=== PATIENT | female | born 1965 | race Caucasian/White ===

== ENCOUNTER 2024-03-27 02:07 | Emergency (ER) | payer BC, SELFPAY ==
--- OUTSIDE RECORDS SUMMARY | 2024-03-27 02:09 | XMS_ITS | Continuity of Care Document ---
Author Name NwHIN User [email or web address]-a llowed Address Unknown Organization Unknown Address Unknown Encounters FILTER APPLIED:Only known Encounters with Admission Date within the last 5 years Encounter Location Admission Discharge Billing Code Roads Superintendent Attender Recurring Patient [id number] ESTEVAN NEELAM Recurring Patient [id number] ESTEVAN NEELAM Recurring Patient [id number] ESTEVAN NEELAM
--- OUTSIDE RECORDS SUMMARY | 2024-03-27 02:09 | XMS_ITS | Clinical Summary ---
Author Organization [facility] Address [place], [place] [address] Care Team Providers Care Yard Brakeman Name Role Phone Arian Dacosta MD Primary Care Provider Allergies Active Allergy Reactions Criticality Noted Date Comments Pioglitazone Other - Describe In Comment Field 06/08/2022 Low sugars 'first week'. Egg GI Upset 05/03/2016 Telmisartan Cough 09/29/2016 Simvastatin Cough 04/11/2016 Cannot tolerate Zocor, but tolerates generic simvastatin Medications blood-glucose meterIndications :Type 2 diabetes mellitus without complication, without long-term current use of insulin (HC) As directed. Dispense meter, test strips, lancets covered by pt ins. E11.65 NIDDM type II, uncontrolled - Test 3 times/day, Reason: High A1C 1 Each 3 Active FreeStyle Renzo 2 ReaderIndication s:Type 2 diabetes mellitus without complication, without long-term current use of insulin (HC) To be used to read blood sugars per licensing manager's directions. 1 Each 3 Active losartan (COZAAR) 50 mg tabletIndication s:Essential hypertension Take 1 Tablet (50 mg) by mouth once daily. 90 Tablet 3 4 Active metFORMIN (GLUCOPHAGE XR) 500 mg Extended-Release tabletIndication s:Type 2 diabetes mellitus without complication, without long-term current use of insulin (HC) Take 4 Tablets (2,000 mg) by mouth once daily with evening meal. 360 Tablet 2 4 Active rosuvastatin (CRESTOR) 10 mg tabletIndication s:Type 2 diabetes mellitus without complication, without long-term current use of insulin (HC) Take 1 Tablet (10 mg) by mouth at bedtime. 90 Tablet 3 4 Active glimepiride (AMARYL) 4 mg tabletIndication s:Type 2 diabetes mellitus without complication, without long-term current use of insulin (HC) Take 1 Tablet (4 mg) by mouth once daily with a meal. 90 Tablet 2 4 Active FreeStyle Renzo 2 SensorIndication s:Type 2 diabetes mellitus without complication, without long-term current use of insulin (HC) Change every 14 days. To be used to read blood sugars per licensing manager's directions. 6 Each 3 4 Active cyclobenzaprine (FLEXERIL) 10 mg tabletIndication s:Acute right-sided low back pain with right-sided sciatica 1 tab by mount up at bedtime as needed for muscle spasm. May make you drowsy/ less alert. 30 Tablet 1 4 Active Active Problems Problem Noted Date Diagnosed Date Overweight 06/08/2022 Mixed hyperlipidemia 06/17/2020 PTSD (post-traumatic stress disorder) 09/29/2016 Nephrolithiasis 04/11/2016 Overview (09/29/2016): 11 previous/one surgically removed Type 2 diabetes mellitus wit hout complication, without long-term current use of insulin 04/11/2016 Overview (07/30/2023): Dx: 2004April 2023: Hemoglobin A1c 11.9 while on metformin, Added Glimepiride. July 2023: Increased Glimepiride to 4mg Essential hypertension 04/11/2016 Ureteral calculus Resolved Problems Problem Noted Date Diagnosed Date Resolved Date Hydronephrosis with urinary obstruction due to ureteral calculus on the right 04/11/20162022 SALVATORE (acute kidney injury) 04/11/2016 Lactic acidosis 04/11/2016 06/08/2022 Acute pyelonephritis, probable 04/11/2016 06/08/2022 Encounters Date Type Department Care Team Description 01/05/2024 1:45 PM CDT - 01/05/2024 11:59 PM CDT Hospital Encounter [address] [address] Colten Garrett MD Noble, Isaac J, PT 01/05/2024 Travel from Last 3 Months Immunizations Name Administration Dates Next Due Influenza, IIV4 01/17/2018 Influenza, IIV4 (=>6mos) MDV 02/05/2020 Tdap 01/17/2018 Zoster (Shingrix-RZV, recombinant) 05/08/2018 Family History Medical History Relation Name Comments Coronary artery disease Father s/p stent Nephrolithiasis Father Arthritis Mother Migraines Mother Gestational diabetes Paternal Grandmother Leukemia Paternal Grandmother of Leukemia Cancer Paternal Uncle Bladder cance r Cancer-breast No Family History Cancer-ovarian No Family History Relation Name Status Comments Father Mother Paternal Grandmother Paternal Uncle Social History Tobacco Use Types Packs/Day Years Used Date Smoking Tobacco: Former Smokeless Tobacco: Never Tobacco Cessation:Counseling Given: No Comments:Two years in her late 20's Alcohol Use Standard Drinks/Week Comments Not Currently 0 (1 standard drink = 0.6 oz pur e alcohol) occasional [facility] Utilities Answer Date Recorded Do you have trouble paying f or utilities (for example, heat, electricity, water, phone)? Yes 07/28/2023 PHQ-2 Answer Date Recorded PHQ-2 TOTAL SCORE 0 04/28/2023 Social Connections Answer Date Recorded Do you often feel lonely or isolated from those around you? 0 07/28/2023 Financial Resource Strain Answer Date R ecorded Difficulty of Paying Living Expenses 3 07/28/2023 Difficulty of Paying Living Expenses Not on file 07/28/2023 Food Insecurity Answer Date Recorded Do you worry your food will run out before you are able to buy more? 1 07/28/2023 Transportation Needs Answer Date Record ed Does lack of transportation keep you from medica l appointments? 1 07/28/2023 Does lack of transportation keep you from work, meetings or getting things that you need? 1 07/28/2023 Housing Stability Answer Date Recorded What is your housing situation today? 1 07/28/2023 Comments No Sex and Gender Information Value Date Recorded Sex Assigned at Female 04/11/2023 2:42 PM CIRCUS TRAINER Legal Sex Female 10:32 PM CIRCUS TRAINER Gender Identity Female 04/11/2023 2:42 PM CIRCUS TRAINER Sexual Orientation Not on file Obstetrics History Para Term AB IAB SAB Ectopic Multiple Livin g Live Births 5 5 5 Date Outcome GA Total Labor Labor/2nd/3rd Weight Sex Type Anes PTL Kandice A1 A5 Name Clin SAB SAB SAB SAB SAB Last Filed Vital Signs Vital Sign Reading Time Taken Comments Blood Pressure 134/85 11/17/2023 3:32 PM CDT Pulse 99 11/17/2023 3:32 PM CDT Temperature 37.3 C (99.1 F) 03/14/2022 4:05 PM CIRCUS TRAINER Respiratory Rate 18 03/14/2022 4:05 PM CIRCUS TRAINER Oxygen Saturation 100% 11/17/2023 3:32 PM CDT Inhaled Oxygen Concentration - - Weight 102.3 kg (225 lb 8 oz) 11/17/2023 3:32 PM CDT Height 177.8 cm (5' 10) 11/17/2023 3:32 PM CDT Body Mass Index 32.36 11/17/2023 3:32 PM CDT Plan of Treatment Health Maintenance Due Date Last Done Comments Hepatitis B series for Diabe qi (1 of 3 - 19+ 3-dose series) 1985 Pneumococcal series for age 50+ (1 of 2 - PCV) 1985 Pap test for age 21-65 1987 Colonoscopy through age 75 2011 Zoster (shingles) series for age 50+ (2 of 2) 07/03/2018 05/08/2018 COVID-19 vaccine series ( season) 2023 10/23/2021, 03/05/2021, 07/15/2020, Additional history exists Influenza for age 50-64 11/19/2023 02/05/2020, 01/17 Depression screening for age 12+ 04/28/2024 04/28/2023, 05/27/2019, 02/26/2018, Additional history exists Mammogram for age 45-75 05/03/2024 05/03/2023 BMI (ht and wt on same day) for age 18+ 11/16/2024 11/17/2023, 05/27/2019, 09/01/2017, Additional history exists Tetanus booster 01/18/2028 01/17/2018 Lipids for age 45-75 04/25/2028 04/25/2023, 07/08/2021, 06/17/2020, Additional history exists Tdap Completed 01/17/2018 HIV for age 15-65 Completed 06/08/2022 Hepatitis C screening for ag e 18-79 Completed 06/08/2022 Goals Goal Patient Goal Type Associated Problems Recent Progress Patient-Stated? Author BLOOD PRESSURE - MAINTAINS BP less than 140/90 Blood Pressure No Oleksandr Covarrubias MD Medical Devices Implanted Type Area Secretary Office Clerk Device Identifier Shelf Expiration Date Model / Serial / Lot Stent Uret [id number] Contour - [id number] Implanted:Qty: 1 on 04/11/2016 by Sharri Moreno MD at [facility] Right: Ureter [facility] [id number] / / [id number] Procedures Procedure Name Priority Date/Time Associated Diagnosis Comments XR MAMMO BILAT SCREENING Routine 05/03/2023 4:30 PM CIRCUS TRAINER Visit for screening mammogram LIPID PANEL W REFLEX MEASURED LDL Routine 04/25/2023 4:02 PM CIRCUS TRAINER Mixed hyperlipidemia LC HIV-1/O/2, 4TH GENERATION Routine 06/08/2022 10:00 AM CDT Screening for HIV (human immunodeficiency virus) LC HCV ANTIBODY RFX TO QUANT PCR Routine 06/08/2022 10:00 AM CDT Need for hepatitis C screening test from Last 3 Months or Most Recently Relevant to Health Maintenance Results * XR MAMMO BILAT SCREENING (05/03/2023 4:30 PM CIRCUS TRAINER) Anatomical Region Laterality Modality BREASTS, Breast Left, Breast Right Bilateral Mammography Impressions 05/31/2023 1:34 PM CDT There is no radiographic evidence for malignancy. Recommend annual mammograms. MAMMOGRAM ASSESSMENT: ACR 1 Negative PATIENTS: You will also receive a letter with your examination results in an easy to read format. If you have questions about your results, please contact your referring provider. Narrative 05/31/2023 1:34 PM CDT For Patients: As a result of the Century Cures Act, medical imaging exams and procedure reports are released immediately into your electronic medical record. You may view this report before your referring provider. If you have questions, please contact your health care provider. XR MAMMO BILAT SCREENING [[id number]] CLINICAL HISTORY: This is an asymptomatic 58 y.o. patient. INDICATION FOR EXAM: Mammogram Screening. TECHNIQUE: CC & MLO views were obtained. This study was evaluated with the assistance of Computer-Aided Detection. COMPARISON FILM: Priors not available at the time of this report. FINDINGS: The breasts have scattered areas of fibroglandular density. There are no dominant masses, suspicious micro calcifications or areas of architectural distortion. us Colten Garrett MD MAMMO Final Res ult * LIPID PANEL W REFLEX MEASURED LDL (04/25/2023 4:02 PM CIRCUS TRAINER) CHOLESTEROL,TOTAL 139 100 - 199 mg/dL 04/26/2023 2:[address] [facility] Comment: Cholesterol, Total Reference Ranges Desirable <200 mg/dL Borderline 200-239 mg/dL High >=240 mg/dL TRIGLYCERIDES 119 <150 mg/dL 04/26/2023 2:36 PM CIRCUS TRAINER [facility] HDL CHOLESTEROL 59 >40 mg/dL 2:[address] [facility] NON-HDL CHOLESTEROL 80 <145 mg/dl 04/26/2023 2:[address] [facility] CHOL/HDL RATIO 2.36 <4.50 04/26/2023 2:[address] [facility] LDL CHOLESTEROL 56 <=130 mg/dL 04/26/2023 2:[address] [facility] VLDL CHOLESTEROL 24 <=30 mg/dL 04/26/2023 2:[address] [facility] PROVIDER ORDERED STATUS FASTING 04/26/2023 2:[address] [facility] Blood BLOOD SPECIMEN / Unknown Butterfly / Unknown 04/25/2023 4:02 PM CIRCUS TRAINER 04/25/2023 4:09 PM CIRCUS TRAINER us Colten Garrett MD CHEMISTRY Final Res ult [facility] [address] [place] [address], [place] * LC HCV ANTIBODY RFX TO QUANT PCR (06/08/2022 10:00 AM CDT) Pathologist [facility] HCV Ab Non Reactive Non Reactive 06/10/2022 3:09 PM CDT [facility] Blood BLOOD SPECIMEN / Unknown Butterfly / Unknown 06/08/2022 10:00 AM CDT 06/08/2022 10:04 AM CDT Narrative [facility] - 06/10/2022 3:09 PM CDT Performed at: [address] [place] [id number] Hospital Internship: Pasquale Barnett MD, Phone: [phone] us Arian Dacosta MD LABORATORY Final Result Performing Organization Address City/[facility]/ZIP Co de Phone Number [facility] [address] [place] [id number], [place] * LC HIV-1/O/2, 4TH GENERATION (06/08/2022 10:00 AM CDT) Pathologist [facility] HIV Scr 4th Gen Non Reactive Non Reactive 06/10/2022 2:09 PM CDT [facility] Comment: HIV Negative HIV-1/HIV-2 antibodies and HIV-1 p24 antigen were NOT detected. There is no laboratory evidence of HIV infection. Blood BLOOD SPECIMEN / Unknown Butterfly / Unknown 06/08/2022 10:00 AM CDT 06/08/2022 10:04 AM CDT Narrative [facility] - 06/10/2022 2:09 PM CDT Performed at: 01 - [facility] [address] [place], [place] [id number] Hospital Internship: Pasquale Barnett MD, Phone: [phone] Arian Dacosta MD LABORATORY Final Result [facility]) [address] [place] [address], from Last 3 Months or Most Recently Relevant to Health Maintenance Insurance [facility] Advance Directives * Full Code (Latest Code Status on File) Date Activated Date Inactivated Comments 05/03/2016 8:14 AM 05/03/2016 11:11 AM * Full Code Date Activated Date Inactivated Comments 05/03/2016 6:58 AM 05/03/2016 8:14 AM * Full Code Date Activated Date Inactivated Comments 04/11/2016 2:16 AM 04/12/2016 3:14 PM Question Answer Comments Code Status Discussion: Discussed * Full Code Date Activated Date Inactivated Comments 04/11/2016 1:37 AM 04/11/2016 2:16 AM Question Answer Comments Code Status Discussion: Not Discussed Care Teams Yard Brakeman Relationship Specialty Start Date End Date Arian Dacosta MD [address] [place] [address] PCP - General Family Practice 03/17/22
[2024-03-27 02:11] VITALS: BP 170/89; PULSE 125; RESP 16; TEMP 35.6; O2SAT 100; BMI 30.8
--- NOTE | 2024-03-27 02:53 | ED_ITS ---
HPI - General Adult General Chief complaint: Hypertension Stated complaint: 183/122 BP, headache, stomach ache Time Seen by Provider: 03/27/24 02:11 Source: patient Mode of arrival: ambulatory Limitations: no limitations History of Present Illness HPI narrative: 58-year-old female presents the emergency department feeling mildly unwell at about 8:00 p.m. which is about 6 hours prior to arrival. Generalized headache, mild nausea. She went to bed about 3 hours ago and awoke about a 1/2 hour ago feeling worse. Worsening headache, nausea, dizzy, just generally unwell but vague and nonspecific. No shortness of breath, cough or true fever. She took her blood pressure and it was noted to be elevated. It is better in triage. She still feels like she has a headache and nausea. There are no focal neurological changes. No difficulty with vision, speech, memory, balance, sensory or motor changes. No prior history of strokes. She does have a history of hypertension, takes medication for this. She also has a history of diabetes, denies any hypoglycemia. She is not on medications that would be high risk for hypoglycemia. Non insulin-dependent. She has had no recent changes in activity, pertinent travel or new illness exposures. Did not try any interventions prior to coming to ED. No chest pain, no history of DVT or PE. No family history of premature coronary artery disease. Past medical history is notable for [id number] diabetes and hypertension. Home meds are glimepiride losartan metformin and rosuvastatin no known drug allergies, nonsmoker. ROS is notable for the generalized symptoms as above only, otherwise denies times 12 systems. Related Data Home Medications ?Medication ?Instructions ?Recorded ?Confirmed losartan 50 mg tablet 50 mg PO DAILY 01/03/23 03/27/24 metformin 500 mg tablet,extended 1,000 mg PO BID 01/03/23 03/27/24 release 24 hr rosuvastatin 10 mg tablet 20 mg PO QPM 01/03/23 03/27/24 glimepiride 4 mg tablet 4 mg PO DAILY 12/28/23 03/27/24 Allergies Allergy/AdvReac Type Severity Reaction Status Date / Time No Known Drug Allergies Allergy Verified 12/28/23 14:39 PFSH PFS Social History Non-prescribed substance use: denies use Exam Const: Vital Signs, click to edit/add: Vital Signs - 24 hr 03/27/24 02:11 Temperature 96.1 F L Pulse Rate [Pulse Oximeter] 125 H Respiratory Rate 16 Blood Pressure [Ri ght Upper Arm] 170/89 H Pulse Oximetry 100 Oxygen Delivery Me thod Room Air Documenting provider has reviewed patient's vital signs: yes Common normals: no apparent distress and alert General appearance: cooperative and well kempt Other: Slightly diaphoretic on the back. No pallor. Appears well hydrated. HENMT: Common normals: normocephalic Head and scalp: normocephalic Face and sinus: normal facial exam Mouth: oral and palatal mucosa normal Throat: posterior oropharynx normal Eye: Common normals: PERRL and EOMs intact bilaterally General eye: normal appearance of both eyes Pupil: PERRL Neck & C-Spine: Common normals: no lymphadenopathy and no meningeal signs General: normal visual inspection Resp: Common normals: normal respiratory effort, no use of accessory muscles and clear to auscultation bilaterally Effort & inspection: able to speak in complete sentences Auscultation: clear to auscultation bilaterally Cardio: Common normals: regular rate, regular rhythm, S1 normal heart sound, S2 normal heart sound and no murmurs Rate: regular rate Rhythm: regular rhythm Heart sounds: S1 normal and S2 normal GI: Common normals: Normal to inspection, nondistended, normoactive bowel sounds present, soft to palpation, non-tender, no hepatosplenomegaly and no masses Palpation: soft and no hepatosplenomegaly Extremity: Common normals: normal to inspection, normal capillary refill and no pedal edema Neuro: Common normals: moves all extremities Sensorium/orientation: alert Meningeal signs: no meningeal signs Speech: speech normal Gait (neuro): normal gait Psych: Appearance: well kempt Attitude: engaged Activity/motor behavior: appropriate eye contact Mood and affect: euthymic mood Insight: insight good Judgement: judgment good Skin: Common normals: no rashes or lesions noted General skin exam: no rashes or lesions noted Course Course ED Course: 58-year-old female with episode of elevated blood pressure in the setting of what sounds like mild illness. Suspicious for influenza a, much in the commun ity right now. Cannot exclude acute cardiac process, stroke, electrolyte abnormality, hypoglycemia, occult urinary infection, amongst others. Blood pressure is improved and triaged, cardiac exam is reassuring. Who swabs collected for influenza COVID and RSV. Basic labs, EKG and urinalysis ordered. She declines Tylenol or ibuprofen for the headache and body aches. I do not see enough neurological changes or indications to warrant a head CT. Await findings. Reevaluation(s) Time of Reevaluation #1: 04:03 Reevaluation #1: Counseled patient on findings. Symptoms stable, no worsening. No neurological changes. Still suspect influenza A. Swabs are negative but duration of symptoms is less than 8 hours at the time of specimen collection. Discussed potential false negative rate. Patient believes she likely has influenza also and we discuss Tamiflu with risks and benefits. She has risk factors of obesity, diabetes and hypertension as risk factors for complication. She is a reasonable candidate for Tamiflu despite negative swab. Through shared decision-making, she agrees that this is her best option. We discussed Tylenol and ibuprofen as needed for symptomatic control. Prescription for Zofran given for nausea. Alarm symptoms reviewed that would warrant ED presentation. Quar antine for 48 hours after starting the Tamiflu. Written instructions provided. Vital Signs Vital signs: Initial Vital Signs Temperature 96.1 F L 03/27/24 02:11 Temperature Source Temporal Artery Scan 03/27/24 02:11 Pulse Rate 125 H 03/27/24 02:11 Respiratory Rate 16 03/27/24 02:11 Blood Pressure 170/89 H 03/27/24 02:11 Blood Pressure Mean 116 H 03/27/24 02:11 Blood Pressure Position Sitting 03/27/24 02:11 Pulse Oximetry 100 03/27/24 02:11 Oxygen Delivery Method Room Air 03/27/24 02:11 Vital Signs Temperature 96.1 F L 03/27/24 02:11 Pulse Rate 125 H 03/27/24 02:11 Respiratory Rate 16 03/27/24 02:11 Blood Pressure 170/89 H 03/27/24 02:11 Pulse Oximetry 100 03/27/24 02:11 Oxygen Delivery Method Room Air 03/27/24 02:11 Temperature 96.1 F L 03/27/24 02:11 Pulse Rate 125 H 03/27/24 02:11 Respiratory Rate 16 03/27/24 02:11 Blood Pressure 170/89 H 03/27/24 02:11 Pulse Oximetry 100 03/27/24 02:11 Oxygen Delivery Method Room Air 03/27/24 02:11 Medical Decision Making Lab Data Lab results reviewed: Yes I reviewed the patient's lab results Lab results narrative: Labs reassuring Labs: Lab Results 03/27/24 03/27/24 03/27/24 Range/Units 02:20 03:11 03:20 WBC 6.48 (4.50-11.00) K/uL RBC 4.60 (4.00-5.20) m/uL Hgb 13.0 (12.0-16.0) gm/dL Hct 38.0 (33.0-51.0) % MCV 83 (80-100) fL MCH 28 (26-34) pg MCHC 34 (32-36) gm/dL RDW Coeff of [place] 12.2 (11.5-15.5) % Plt Count 226 (140-440) K/uL Neut % (Auto) 67.6 (42.0-72.0) % Lymph % (Auto) 24.8 (20-44) % [place] % (Auto) 6.5 (0.0-11.0) % Eos % (Auto) 0.6 (0.0-7.0) % Baso % (Auto) 0.2 (0.0-3.0) % Neut # (Auto) 4.38 (1.7-7.0) K/uL Lymph # (Auto) 1.61 (0.90-2.90) K/uL [place] # (Auto) 0.40 (0.00-0.90) K/UL Eos # (Auto) 0.04 (0.00-0.50) K/uL Baso # (Auto) 0.01 (0.00-0.30) K/uL Abs Immat Gran (auto) 0.02 (0.00-0.30) K/uL Imm/Tot Granulo (auto) 0.3 % Sodium 139 (135-149) mmol/L Potassium 3.4 L (3.6-5.1) mmol/L Chloride 104 (96-114) mmol/L Carbon Dioxide 26 (20-32) mmol/L Anion Gap 9 (7-15) mEq/L BUN 15 (7-30) mg/dL Creatinine 0.6 (0.5-1.5) mg/dL Estimated Creat Clear 111.87 Estimated GFR 105 ml/min Glucose 228 H (60-115) mg/dL Calcium 8.9 (8.4-10.6) mg/dL Total Bilirubin 1.6 H (0.1-1.5) mg/dL AST 28 (12-35) U/L ALT 45 H (4-35) U/L Alkaline Phosphatase 86 (40-150) U/L C-Reactive Protein < 0.5 L (0.5-1.0) mg/dL Total Protein 6.5 (6.0-8.3) g/dL Albumin 4.3 (3.3-5.0) g/dL Urine Color Yellow (Yellow) Urine Appearance Clear (Clear) Urine pH 5.5 (5.0-8.5) Ur Specific [place] 1.020 (1.000-1.030) Urine Protein Trace A (Negative) Urine Glucose (UA) Trace A (Negative) Urine Ketones 1+ A (Negative) Urine Blood Negative (Negative) Urine Nitrite Negative (Negative) Urine Bilirubin Negative (Negative) Urine Urobilinogen 0.2 (0.2-1.0) Ur Leukocyte Esterase Negative (Negative) Urine RBC 0-2 (0-2) Urine WBC 0-2 (0-5) Ur Squamous Epith Cells Moderate A (None-Few) Amorphous Sediment Few A (None) Urine Bacteria Few A (None) SARS-CoV-2 (PCR) Negative SARS-CoV-2 (Negative) Influenza Type A (PCR) Negative PCR FLU A (Negative) Influenza Type B (PCR) Negative PCR FLU B (Negative) RSV (PCR) Negative PCR RSV (Negative) ECG Data Attestation: I personally reviewed and interpreted this ECG as follows: Prior ECG tracings: not available for review Interpretation: Sinus rhythm rate of 96. Mild left axis deviation but otherwise normal intervals. Normal ST segments and T-waves. Normal EKG. Discharge Plan Discharge Clinical Impression: Influenza-like illness Patient Disposition: Home, Self-Care Condition: Stable Instructions: Influenza (DC) Additional Instructions: As we discussed, your swabs are negative but your symptoms are likely consistent with influenza a, we are seeing many cases of this right now. I cannot say for sure her of course. The swabs do have about a 50 50 false-negative rate with onset of illness less than 8 hours like yours. Because of this, you really are a good candidate for Tamiflu, on antiviral medicine that you will take twice daily. This will shorten the duration, intensity and contagiousness of the illness. You will still have headache, dizziness, body aches, nausea and general fatigue. It is okay to use Tylenol 1000 mg every 6 hours and or ibuprofen 600 mg every 6 hours to combat those symptoms. Drink plenty of fluids. I have also given her prescription for Zofran, also known as ondansetron which is a common anti nausea medicine that you may use if needed. This lessens your chance of dehydration if your symptoms worsen. If you have severe shortness of breath, severe weakness, you should return to the emergency department. Please quarantine for the next 48 hours while we wait to see if your symptoms worsen. Activity Level: Activity as Tolerated Discharge Diet: Diabetic Prescriptions: No Action metformin 500 mg tablet extended release 24 hr 1,000 mg PO BID rosuvastatin 10 mg tablet 20 mg PO QPM losartan 50 mg tablet 50 mg PO DAILY glimepiride 4 mg tablet 4 mg PO DAILY Follow Up/Referrals: Colten Garrett MD [Primary Care Provider] - Stand Alone Forms: [employer] Info Instructions
--- OUTSIDE RECORDS SUMMARY | 2024-03-27 02:56 | XMS_ITS | Continuity of Care Document ---
Author Name NwHIN User [email or web address] llowed Address Unknown Organization Unknown Address Unknown Encounters FILTER APPLIED:Only known Encounters with Admission Date within the last 5 years Encounter Location Admission Discharge Billing Code Financial Aid Attender Recurring Patient [id number] ESTEVAN NEELAM Recurring Patient [id number]. [id number] ESTEVAN NEELAM Recurring Patient [id number]. [id number] ESTEVAN NEELAM
--- OUTSIDE RECORDS SUMMARY | 2024-03-27 02:56 | XMS_ITS | Clinical Summary ---
Author Organization [facility] [facility] Address [place], [place] [address] Care Team Providers Care Harness Fitter Name Role Phone Arian Dacosta MD Primary [...] be used to read blood sugars per bridal stylist sales consultant's directions. 1 Each 3 Active losartan (COZAAR) [...] be used to read blood sugars per bridal stylist sales consultant's directions. 6 Each 3 4 Active cyclobenzaprine [...] - 01/05/2024 11:59 PM CDT Hospital Encounter [address] [address] Colten Garrett MD Noble, Isaac J, PT [...] Sex Assigned at Female 04/11/2023 2:42 PM KILN REMOVER Legal Sex Female 10:32 PM KILN REMOVER Gender Identity Female 04/11/2023 2:42 PM KILN REMOVER Sexual Orientation Not on file Obstetrics History [...] 37.3 C (99.1 F) 03/14/2022 4:05 PM KILN REMOVER Respiratory Rate 18 03/14/2022 4:05 PM KILN REMOVER Oxygen Saturation 100% 11/17/2023 3:32 PM CDT [...] Covarrubias MD Medical Devices Implanted Type Area Neuropsychiatric Aide Device Identifier Shelf Expiration Date Model / Serial / Lot Stent Uret [id number] Contour - [id number] Implanted:Qty: 1 on 04/11/2016 by Sharri Moreno MD at [facility] Right: [employer] [facility] U[facility] [id number] / / [id number] Procedures Procedure Name Priority Date/Time Associated Diagnosis Comments XR MAMMO BILAT SCREENING Routine 05/03/2023 4:30 PM KILN REMOVER Visit for screening mammogram LIPID PANEL W REFLEX MEASURED LDL Routine 04/25/2023 4:02 PM KILN REMOVER Mixed hyperlipidemia LC HIV-1/O/2, 4TH GENERATION Routine 06/08/2022 10:00 AM CDT Screening for HIV (human immunodeficiency virus) LC HCV ANTIBODY RFX TO QUANT PCR Routine 06/08/2022 10:00 AM CDT Need for hepatitis C screening test from Last 3 Months or Most Recently Relevant to Health Maintenance Results * XR MAMMO BILAT SCREENING (05/03/2023 4:30 PM KILN REMOVER) Anatomical Region Laterality Modality BREASTS, Breast Left, [...] health care provider. XR MAMMO BILAT SCREENING [[id number]] CLINICAL HISTORY: This is an asymptomatic 58 [...] W REFLEX MEASURED LDL (04/25/2023 4:02 PM KILN REMOVER) CHOLESTEROL,TOTAL 139 100 - 199 mg/dL 04/26/2023 2:36 PM KILN REMOVER [facility] Comment: Cholesterol, Total Reference Ranges Desirable <200 mg/dL Borderline 200-239 mg/dL High >=240 mg/dL TRIGLYCERIDES 119 <150 mg/dL 04/26/2023 2:36 PM KILN REMOVER [facility] HDL CHOLESTEROL 59 >40 mg/dL 2:36 PM KILN REMOVER [facility] NON-HDL CHOLESTEROL 80 <145 mg/dl 04/26/2023 2:36 PM KILN REMOVER [facility] CHOL/HDL RATIO 2.36 <4.50 04/26/2023 2:36 PM KILN REMOVER [facility] LDL CHOLESTEROL 56 <=130 mg/dL 04/26/2023 2:36 PM KILN REMOVER [facility] VLDL CHOLESTEROL 24 <=30 mg/dL 04/26/2023 2:36 PM KILN REMOVER [facility] PROVIDER ORDERED STATUS FASTING 04/26/2023 2:36 PM KILN REMOVER [facility] Blood BLOOD SPECIMEN / Unknown Butterfly / Unknown 04/25/2023 4:02 PM KILN REMOVER 04/25/2023 4:09 PM KILN REMOVER us Colten Garrett MD CHEMISTRY Final Res ult [facility] [address] [place] [address], [place] * LC HCV ANTIBODY RFX TO QUANT PCR (06/08/2022 10:00 AM CDT) Pathologist [facility] HCV Ab Non Reactive Non Reactive 06/10/2022 3:09 PM CDT [facility] Blood BLOOD SPECIMEN / Unknown Butterfly / Unknown 06/08/2022 10:00 AM CDT 06/08/2022 10:04 AM CDT Narrative [facility] - 06/10/2022 3:09 PM CDT Performed at: [address] [place] [id number] Tight Rope Walker: Pasquale Barnett MD, Phone: [phone] us Arian Dacosta MD LABORATORY Final Result Performing Organization Address City/[facility]/ZIP Co de Phone Number [facility] [address] [place] [id number], [place] * LC HIV-1/O/2, 4TH GENERATION (06/08/2022 10:00 AM CDT) Pathologist [facility] HIV Scr 4th Gen Non Reactive Non Reactive 06/10/2022 2:09 PM CDT [facility] Comment: HIV Negative HIV-1/HIV-2 antibodies and HIV-1 p24 antigen were NOT detected. There is no laboratory evidence of HIV infection. Blood BLOOD SPECIMEN / Unknown Butterfly / Unknown 06/08/2022 10:00 AM CDT 06/08/2022 10:04 AM CDT Narrative [facility] - 06/10/2022 2:09 PM CDT Performed at: 01 - [facility] [address] [place], [place] [id number] Tight Rope Walker: Pasquale Barnett MD, Phone: [phone] Arian Dacosta MD LABORATORY Final Result [facility] [place] [address], from Last 3 Months or Most Recently Relevant to Health Maintenance Insurance [facility] Advance Directives * Full Code (Latest Code [...] Code Status Discussion: Not Discussed Care Teams Harness Fitter Relationship Specialty Start Date End Date Arian Dacosta MD [address] [place] [address] PCP - General Family Practice 03/17/22
[2024-03-27 03:02] LABS: PCR FLU A Negative PCR FLU A (Negative); PCR FLU B Negative PCR FLU B (Negative); PCR RSV Negative PCR RSV (Negative); SARS PCR* Negative SARS-CoV-2 (Negative)
[2024-03-27 03:21] LABS: Appearance Urine Clear (Clear); Bilirubin Urine Negative (Negative); Blood Urine Negative (Negative); Color Urine Yellow (Yellow); Glucose Urine Trace (Negative); Ketones Urine 1+ (Negative); Leukocyte Esterase Urine Negative (Negative); Nitrite Urine Negative (Negative); Protein Urine Trace (Negative); Urobilinogen Urine 0.2 (0.2-1.0); pH Urine 5.5 (5.0-8.5)
[2024-03-27 03:30] LABS: Basophils Absolute Auto 0.01 K/uL (0.00-0.30); Basophils Percent Auto 0.2 % (0.0-3.0); Eosinophils Absolute Auto 0.04 K/uL (0.00-0.50); Eosinophils Percent Auto 0.6 % (0.0-7.0); Immature Granulocytes Abs Auto 0.02 K/uL (0.00-0.30); Immature Granulocytes Pct Auto 0.3 %; Lymphocytes Absolute Auto 1.61 K/uL (0.90-2.90); Lymphocytes Percent Auto 24.8 % (20-44); Mean Corpuscular HGB Conc 34 gm/dL (32-36); Mean Corpuscular Hemoglobin 28 pg (26-34); Mean Corpuscular Volume 83 fL (80-100); Monocytes Percent Auto 6.5 % (0.0-11.0); Neutrophils Absolute Auto 4.38 K/uL (1.7-7.0); Neutrophils Percent Auto 67.6 % (42.0-72.0); Platelet Count* 226 K/uL (140-440); RDW Coefficient of Variation % 12.2 % (11.5-15.5); White Blood Count* 6.48 K/uL (4.50-11.00)
[2024-03-27 03:32] LABS: Amorphous Sediment Urine Few; Bacteria Urine Few; RBC Urine 0-2 (0-2); Squamous Epithelial Cell Urine Moderate (None-Few); WBC Urine 0-2 (0-5)
[2024-03-27 03:33] LABS: Slide Review Reflex No
[2024-03-27 03:44] LABS: Albumin* 4.3 g/dL (3.3-5.0); Chloride* 104 mmol/L (96-114)
[2024-03-27 03:45] LABS: Potassium* 3.4 mmol/L (3.6-5.1); Sodium* 139 mmol/L (135-149)
[2024-03-27 03:47] LABS: Alkaline Phosphatase* 86 U/L (40-150); Aspartate Amino Transferase* 28 U/L (12-35); Bilirubin Total* 1.6 mg/dL (0.1-1.5); Carbon Dioxide* 26 mmol/L (20-32); Creatinine* 0.6 mg/dL (0.5-1.5); Est. Creatinine Clearance* 111.87; Estimated Glomerular Filt Rate 105 ml/min; Total Protein* 6.5 g/dL (6.0-8.3)
[2024-03-27 03:48] LABS: Alanine Aminotransferase* 45 U/L (4-35); Anion Gap 9 mEq/L (7-15); Blood Urea Nitrogen* 15 mg/dL (7-30); Calcium* 8.9 mg/dL (8.4-10.6); Glucose* 228 mg/dL (60-115)
[2024-03-27 03:54] LABS: C Reactive Protein* < 0.5 mg/dL (0.5-1.0)
== END 2024-03-27 04:13 | disposition home or self-care (01) ==
PROVIDERS: Emergency Provider Family Medicine; PCP Family Medicine
DX: J11.1 Influenza due to unidentified influenza virus with other respiratory manifestations (principal)
CPT/HCPCS: 36415; 80053; 81001; 81003; 84484; 85025; 86140; 87086; 87631; 93005; 99283; 99284